=== PATIENT | female | born 1995 | race Caucasian/White ===

== ENCOUNTER 2020-03-07 10:33 | Inpatient (IN) | payer OTHER ==
[2020-03-07] MEDS ORDERED: ONDANSETRON 4 MG TAB.RAPDIS PO ONE (14:13)
[2020-03-07] MEDS ORDERED: NORMAL SALINE 1000 ML 1,000 ML IV ONE ×2 (14:15→18:08)
--- NOTE | 2020-03-07 14:28 | ER Document Report ---
ED Medical Screen (RME) - General Chief Complaint: Flank Pain Stated Complaint: FLANK PAIN/FEVER Time Seen by Provider: 03/07/20 14:12 Primary Care Provider: ALBERTO BOCANEGRA NP [Primary Care Provider] - Follow up as needed Notes: 24-year-old female with 4 days of dysuria, fever and flank pain, left greater than right with associated nausea and vomiting. Is taking motrin 800 mg q 6-8 hours for her fever and pain. Her fever was up to 104 this am. Is unable to keep food down. She recently ate [employer] and feels nauseated. States she has a history of kidney infections, most recent one was 3 months ago. Her urine has a sulfur smell and she notices gross hematuria. She was hospitalized a year and half ago due to an infection. Currently taking macrobid prescribed from her primary care in [place]. Recently moved here from [place]. Also reports vaginal discharge and irritation. General: Alert, oriented Heart: RRR Back: (+) CVA tenderness L > R, no tenderness along spinous processes I have greeted and performed a rapid initial assessment of this patient. A comprehensive ED assessment and evaluation of the patient, analysis of test results and completion of medical decision making process will be conducted by an additional ED providers. Physical Exam - Vital signs Vitals: Temp Pulse Resp BP Pulse Ox 99.7 F 86 16 126/74 H 100 03/07/20 12:37 03/07/20 12:37 03/07/20 12:37 03/07/20 12:37 03/07/20 12:37 Course - Vital Signs Vital signs: Temp Pulse Resp BP Pulse Ox 99.7 F 86 16 126/74 H 100 03/07/20 12:37 03/07/20 12:37 03/07/20 12:37 03/07/20 12:37 03/07/20 12:37 Doctor's Discharge - Discharge Referrals: ALBERTO BOCANEGRA NP [Primary Care Provider] - Follow up as needed
[2020-03-07 15:09] LABS: ABSOLUTE LYMPHOCYTES (AUTO) 1.5 10^3/uL (0.5-4.7); ABSOLUTE MONOCYTES (AUTO) 1.1 10^3/uL (0.1-1.4); ABSOLUTE NEUT (AUTO) 13.6 10^3/uL (1.7-8.2); BASOPHILS % (AUTO) 0.3 % (0-2); EOSINOPHILS % (AUTO) 0.1 % (0-6); HEMOGLOBIN 13.7 g/dL (12.0-15.5); LYMPHOCYTES % (AUTO) 9.5 % (13-45); MEAN CORPUSCULAR HEMOGLOBIN 27.9 pg (27.0-33.4); MEAN CORPUSCULAR HGB CONC 33.5 g/dL (32.0-36.0); MEAN CORPUSCULAR VOLUME 83 fl (80-97); MONOCYTES % (AUTO) 6.8 % (3-13); PLATELET COUNT 290 10^3/uL (150-450); RED BLOOD COUNT 4.92 10^6/uL (3.72-5.28); RED CELL DISTRIBUTION WIDTH 14.6 % (11.5-14.0); SEGMENTED NEUTROPHILS % (AUTO) 83.3 % (42-78); TOTAL CELLS COUNTED % (AUTO) 100 %; WHITE BLOOD COUNT 16.4 10^3/uL (4.0-10.5)
[2020-03-07 15:25] LABS: ALBUMIN 4.7 g/dL (3.5-5.0); ALKALINE PHOSPHATASE 103 U/L (38-126); ANION GAP 8 (5-19); ASPARTATE AMINO TRANSFERASE 23 U/L (14-36); BILIRUBIN,TOTAL 1.4 mg/dL (0.2-1.3); BLOOD UREA NITROGEN 11 mg/dL (7-20); CALCIUM 9.6 mg/dL (8.4-10.2); CARBON DIOXIDE 27 mmol/L (22-30); CHLORIDE 101 mmol/L (98-107); GLUCOSE 107 mg/dL (75-110); POTASSIUM 3.8 mmol/L (3.6-5.0); TOTAL PROTEIN 7.9 g/dL (6.3-8.2)
[2020-03-07 15:51] LABS: APPEARANCE,URINE CLOUDY; BILIRUBIN,URINE NEGATIVE (NEGATIVE); COLOR,URINE AMBER; GLUCOSE, URINE NEGATIVE (NEGATIVE); KETONES,URINE NEGATIVE (NEGATIVE); LEUKOCYTE ESTERASE,URINE LARGE (NEGATIVE); NITRITE,URINE POSITIVE (NEGATIVE); PROTEIN,URINE 100 mg/dL (NEGATIVE); URINE SPECIFIC GRAVITY 1.013; UROBILINOGEN,URINE NEGATIVE mg/dL (<2.0)
--- NOTE | 2020-03-07 16:35 | RADIOLOGY REPORT (SQ) ---
EXAM DESCRIPTION: CT ABD/PELVIS NO ORAL OR IV IMAGES COMPLETED DATE/TIME: 03/07/2020 4:24 pm REASON FOR STUDY: flank pain COMPARISON: None. TECHNIQUE: CT scan of the abdomen and pelvis performed without intravenous or oral contrast. Images reviewed with lung, soft tissue, and bone windows. Reconstructed coronal and sagittal MPR images revi ewed. All images stored on PACS. All CT scanners at this facility use dose modulation, iterative reconstruction, and/or weight based d osing when appropriate to reduce radiation dose to as low as reasonably achievable (ALARA). [facility]: Dose Right [facility]: CareDose [facility]: Dose Right [facility]: Teradose 4D [facility]: Smart MedAware RADIATION DOSE: CT Rad equipment meets quality standard of care and radiation dose reduction techniq ues were employed. CTDIvol: 9.8 mGy. DLP: 526 mGy-cm.mGy. LIMITATIONS: None. FINDINGS: LOWER CHEST: No significant findings. No nodules or infiltrates. NON-CONTRASTED LIVER, SPLEEN, ADRENALS: Evaluation limited by lack of IV contrast. No identified sign ificant masses. PANCREAS: No masses. No peripancreatic inflammatory changes. GALLBLADDER: Cholelithiasis (gallstone measures 1.8 cm). No secondary evidence of acute cholecystiti s. RIGHT KIDNEY AND URETER: No suspicious masses. Assessment limited by lack of IV contrast. No signif icant calcifications. Minimal fullness of the right ureter with some questionable mild diffuse uret eral wall thickening. No obstructing lesion identified. LEFT KIDNEY AND URETER: No suspicious masses. Assessment limited by lack of IV contrast. No signifi cant calcifications. No hydronephrosis or hydroureter. AORTA AND RETROPERITONEUM: No aneurysm. No retroperitoneal masses or adenopathy. BOWEL AND PERITONEAL CAVITY: No obvious masses or inflammatory changes. No free fluid. APPENDIX: Surgically absent. PELVIS, BLADDER, AND ABDOMINAL WALL:No abnormal masses. No free fluid. Bladder normal. BONES: No acute bony abnormality. No suspicious osseous lesion. OTHER: No other significant finding. IMPRESSION: 1. No nephrolithiasis. Mild fullness of the right ureter with questionable ureteral wa ll thickening may be related to recently passed stone or possibly urinary tract infection. Recommend correlation with urinalysis. 2. Cholelithiasis. COMMENT: Quality ID # [id number]: Final reports with documentation of one or more dose reduction techniques (e.g., Automated exposure control, adjustment of the mA and/or kV according to patient size, use of iterative reconstruction technique) TECHNICAL DOCUMENTATION: JOB ID: [id number] 2010 [employer]- All Rights Reserved Reading location - IP/workstation name: [email or web address]
[2020-03-07] MEDS ORDERED: KETOROLAC TROMETHAMINE INJ/PF 30 MG/1 ML SDV IV ONE (18:08)
[2020-03-07] MEDS ORDERED: ONDANSETRON HCL INJ/PF 4 MG/2 ML SDV IV ONE (18:13)
[2020-03-07] MEDS ORDERED: HYDROMORPHONE HCL INJ/PF 2 MG/ML AMPULE IV ONE (18:14)
--- NOTE | 2020-03-07 18:15 | ER Document Report ---
ED GI/ - General Chief Complaint: Flank Pain Stated Complaint: FLANK PAIN/FEVER Time Seen by Provider: 03/07/20 14:12 Mode of Arrival: Ambulatory Information source: Patient Notes: 24-year-old woman presenting to the emergency department with a 4-day history of right sided flank pain and fever with nausea and vomiting. She also complains of dysuria and urgency, states that she has had a UTI in the past. She is presently not taking any medications and rates her pain 05/07. - Related Data Allergies/Adverse Reactions: cephalexin [From Keflex] Adverse Reaction (Verified 03/07/20 16:11) Home Medications: Synthroid, Adderral Past Medical History - Social History Smoking Status: Unknown if Ever Smoked Family History: Reviewed & Not Pertinent Review of Systems - Review of Systems Notes: Constitutional: + Fever. HENT: Negative for sore throat. Eyes: Negative for visual changes. Cardiovascular: Negative for chest pain. Respiratory: Negative for shortness of breath. Gastrointestinal: + Nausea and vomiting Genitourinary: + Dysuria, + frequency, + urgency Musculoskeletal: + Right flank pain Skin: Negative for rash. Neurological: Negative for headaches, weakness or numbness. 10 point ROS negative except as marked above and in HPI. Physical Exam - Vital signs Vitals: Temp Pulse Resp BP Pulse Ox 99.7 F 86 16 126/74 H 100 03/07/20 12:37 03/07/20 12:37 03/07/20 12:37 03/07/20 12:37 03/07/20 12:37 - Notes Notes: PHYSICAL EXAMINATION: Physical Exam: General: Ill appearing 24-year-old woman in moderate distress secondary to right flank pain. HEENT: NC/AT, pupils equal round and reactive to light, MM moist,nares clear, oropharynx clear, airway patent Neck: supple, no adenopathy, no masses. Good range of motion Lungs: clear, no wheezing, no rales no rhonchi CVS: Regular rate and rhythm no murmur gallop or rub Abdomen: Soft, active, nontender, no masses, no hepatosplenomegaly Ext: No edema, clubbing or cyanosis. Back: Right CVA tenderness Neuro: Alert and responsive, moving all 4 extremities on command, cranial nerves intact, no focal findings Skin: Intact no open lesions, no rash PSYCH: Normal mood, normal affect. Course - Re-evaluation Re-evalutation: 03/07/20 20:06 This 24-year-old woman presents to the emergency department right flank pain and fever with associated nausea vomiting. CT scan of the abdomen and pelvis is negative for kidney stone. She does have findings that suggest possible pyelonephritis. There is no abscess around the kidney. Patient has a elevated white count and a urine which is obviously infected. She has a note of cephalexin allergy, notes that she has GI upset with diarrhea when she takes cephalexin. I have given the patient a dose of Rocephin in the emergency department and a liter of fluids. I have contacted the hospitalist regarding admission. - Vital Signs Vital signs: Temp Pulse Resp BP Pulse Ox 98.8 F 97 18 107/56 L 94 03/08/20 23:01 03/08/20 23:01 03/08/20 23:01 03/08/20 23:01 03/08/20 23:01 - Laboratory Result Diagrams: 03/08/20 07:15 03/08/20 07:15 Laboratory results interpreted by me: 03/07/20 03/07/20 03/07/20 14:51 14:51 15:38 WBC 16.4 H RDW 14.6 H Lymph % (Auto) 9.5 L Absolute Neuts (auto) 13.6 H Seg Neutrophils % 83.3 H Sodium 136.1 L Total Bilirubin 1.4 H Urine Protein 100 H Urine Blood LARGE H Urine Nitrite POSITIVE H Ur Leukocyte Esterase LARGE H Discharge - Discharge Clinical Impression: Acute pyelonephritis, Right flank pain Nausea and vomiting Qualifiers: Vomiting type: unspecified Vomiting Intractability: non-intractable Qualified Code(s): R11.2 - Nausea with vomiting, unspecified Condition: Good Disposition: ADMITTED INPATIENT Admitting Provider: Will (Hospitalist) Unit Admitted: Medical Floor
[2020-03-07] MEDS ORDERED: CEFTRIAXONE INJ 1000 MG VIAL IV ONE (18:32)
[2020-03-07] MEDS ORDERED: MAGNESIUM HYDROXIDE SUSP 30 ML UDCUP PO PRN (19:15)
[2020-03-07] MEDS ORDERED: MAG HYDROX/AL HYDROX/SIMETH SUSP 30 ML UDCUP PO PRN (19:15)
[2020-03-07 19:19] LABS: BACTERIA (WET MOUNT) 4+ BACTERIA SEEN; EPITHELIALS (WET MOUNT) 3+ EPITHELIALS SEEN; T.VAGINALIS (WET MOUNT) NO TRICHOMONAS SEEN; WBCS (WET MOUNT) 2+ WBCS SEEN; YEAST (WET MOUNT) NO YEAST SEEN
[2020-03-07] MEDS ORDERED: ACETAMINOPHEN 650 MG SUPP.RECT PR PRN (19:19)
[2020-03-07] MEDS ORDERED: LORAZEPAM INJ 2 MG/1 ML VIAL IV PRN (19:19)
[2020-03-07] MEDS ORDERED: NICOTINE 21 MG/24 HR PATCH.TD24 TD PRN (19:19)
[2020-03-07] MEDS ORDERED: GUAIFENESIN SYRP 200 MG/10 ML UDC PO PRN (19:19)
[2020-03-07] MEDS ORDERED: MEROPENEM 1 GM VIAL IV SCH (19:30)
[2020-03-07] MEDS: PROMETHAZINE HCL INJ 25 MG/1 ML VIAL IV PRN (21:58)
[2020-03-07] MEDS ORDERED: FAMOTIDINE INJ/PF 20 MG/2 ML SDV IV SCH (22:00)
[2020-03-07] MEDS: HYDROMORPHONE HCL INJ/PF 2 MG/ML AMPULE IV PRN (22:01)
[2020-03-07] MEDS: MEROPENEM 1 GM in NORMAL SALINE 50 ML IV SCH (22:45)
[2020-03-07] MEDS: HEPARIN SOD (PORCINE) 5,000 UNIT/ML 1 ML VIAL SUBCUT SCH (22:59)
[2020-03-08] MEDS: DEXTROSE 5%-LACTATED RINGERS 1,000 ML IV PRN ×3 (01:27→16:40)
--- NOTE | 2020-03-08 06:22 | PDOC H&P ---
History of Present Illness Admission Date/PCP: 03/07/2020 19:00 ALBERTO BOCANEGRA NP Patient complains of: Bilateral flank pain History of Present Illness: MINNIE PAULINO is a 24 year old female who presented the emergency room with a 4- day history of bilateral flank pain. She admits the gradual onset and progressive worsening of constant aching pressure in her bilateral posterior flanks being more intense on the left than on the right, without radiation. Her flank pain is severe today and has been accompanied by dysuria with gross hematuria, chills and a persistent fever up to 104 F this morning. Her flank pain has been associated with a vaginal discharge and progressively worsening nausea and vomiting and today she is unable to keep down food or liquids. She denies other associated or accompanying signs and symptoms. She admits prior similar episodes with urinary tract infections. She is currently taking Macrodantin for urinary tract infection prophylaxis. She has been taking ibuprofen for control of pain and fever at home until today when she could no longer tolerate oral intake. She has not identified any aggravating or ameliorating factors for her bilateral flank pain. In the emergency room she was found to have pyuria with a positive nitrite as well as an elevated white blood cell count. She was subsequently admitted to the hospital for further evaluation and treatment. Past Medical History Cardiac Medical History: Denies: Atrial Fibrillation, Coronary Artery Disease, DVT, Hypertension, Pulmonary Embolism Pulmonary Medical History: Denies: Asthma, Chronic Obstructive Pulmonary Disease (COPD) EENT Medical History: Denies: Cataracts, Ears - Hearing aids Neurological Medical History: Denies: Multiple Sclerosis, Seizures Endocrine Medical History: Reports: Hypothyroidism Denies: Diabetes Mellitus Type 1, Hyperthyroidism Renal/ Medical History: Reports: Other - Frequent urinary tract infection Denies: Chronic Kidney Disease, Nephrolithiasis Malignancy Medical History: Reports: None GI Medical History: Denies: Cirrhosis, Hepatitis, Peptic Ulcer Disease Musculoskeltal Medical History: Denies: Arthritis, Fibromyalgia Skin Medical History: Denies: Eczema, Psoriasis Psychiatric Medical History: Denies: Alcohol Dependency, Substance Abuse, Tobacco Dependency Traumatic Medical History: Reports: None Hematology: Denies: Anemia, Bleeding Tendencies Infectious Medical History: Reports: None Past Surgical History Past Surgical History: Reports: Appendectomy Social History Information Source: Patient Lives with: Spouse/Significant other Smoking Status: Never Smoker Electronic Cigarette use?: No Frequency of Alcohol Use: Rare Hx Recreational Drug Use: No Drugs: None Hx Prescription Drug Abuse: No - Advance Directive Resuscitation Status: Full Code Surrogate healthcare decision maker:: Drew Paulino Family History Family History: Other - Autoimmune diseases. denies: CAD, DM, Hypertension, Malignancy Parental Family History Reviewed: Yes Children Family History Reviewed: No Sibling(s) Family History Reviewed.: Yes Medication/Allergy Allergies/Adverse Reactions: cephalexin [From Keflex] Adverse Reaction (Verified 03/07/20 16:11) Review of Systems Constitutional: PRESENT: as per HPI, chills, fever(s). ABSENT: headache(s) Eyes: ABSENT: visual disturbances, other - Eye pain Ears: ABSENT: hearing changes, other - Ear pain Nose, Mouth, and Throat: ABSENT: headache(s), sore throat Cardiovascular: ABSENT: chest pain, palpitations Respiratory: ABSENT: cough, dyspnea Gastrointestinal: PRESENT: nausea, vomiting. ABSENT: abdominal pain, constipation, diarrhea Genitourinary: PRESENT: as per HPI, dysuria, hematuria, other - Bilateral flank pain Musculoskeletal: ABSENT: joint swelling, muscle weakness Integumentary: ABSENT: pruritus, rash Neurological: ABSENT: confusion, convulsions, focal weakness, memory loss, syncope Psychiatric: ABSENT: anxiety, depression Endocrine: ABSENT: cold intolerance, heat intolerance Hematologic/Lymphatic: ABSENT: easy bleeding, easy bruising Allergic/Immunologic: ABSENT: seasonal rhinorrhea Physical Exam Vital Signs: Temp Pulse Resp BP Pulse Ox 99.7 F 86 16 126/74 H 100 03/07/20 12:37 03/07/20 12:37 03/07/20 12:37 03/07/20 12:37 03/07/20 12:37 Intake & Output 03/05/20 03/06/20 03/07/20 23:59 23:59 23:59 Intake Total 1999 Balance 1999 Weight 83.915 kg General appearance: PRESENT: cooperative, mild distress - Secondary to flank pain Head exam: PRESENT: atraumatic, normocephalic Eye exam: PRESENT: conjunctiva pink. ABSENT: conjunctival injection, scleral icterus Ear exam: PRESENT: normal external ear exam. ABSENT: bleeding, drainage Mouth exam: PRESENT: dry mucosa, neck supple Neck exam: ABSENT: thyromegaly, tracheal deviation Respiratory exam: PRESENT: clear to auscultation navarro, symmetrical, unlabored Cardiovascular exam: PRESENT: RRR. ABSENT: clicks, gallop, rubs Pulses: PRESENT: normal radial pulses, normal dorsalis pedis pul Vascular exam: PRESENT: normal capillary refill. ABSENT: pallor GI/Abdominal exam: PRESENT: normal bowel sounds, soft, tenderness - Bilateral CVA tenderness, left greater than right Rectal exam: PRESENT: deferred Extremities exam: ABSENT: joint swelling, pedal edema Musculoskeletal exam: ABSENT: deformity, dislocation Neurological exam: PRESENT: alert, oriented to person, oriented to place, oriented to time, oriented to situation, CN II-XII grossly intact. ABSENT: motor sensory deficit Psychiatric exam: PRESENT: appropriate affect, normal mood Skin exam: PRESENT: dry, intact, warm. ABSENT: jaundice, rash, urticaria Results Laboratory Results: 03/07/20 14:51 03/07/20 14:51 03/07/20 03/07/20 03/07/20 14:51 14:51 15:38 WBC 16.4 H RBC 4.92 Hgb 13.7 Hct 41.0 MCV 83 MCH 27.9 MCHC 33.5 RDW 14.6 H Plt Count 290 Seg Neutrophils % 83.3 H Sodium 136.1 L Potassium 3.8 Chloride 101 Carbon Dioxide 27 Anion Gap 8 BUN 11 Creatinine 0.70 Est GFR ( Amer) > 60 Glucose 107 Calcium 9.6 Total Bilirubin 1.4 H AST 23 Alkaline Phosphatase 103 Total Protein 7.9 Albumin 4.7 Urine Color SAM Urine Appearance CLOUDY Urine pH 5.0 Ur Specific [place] 1.013 Urine Protein 100 H Urine Glucose (UA) NEGATIVE Urine Ketones NEGATIVE Urine Blood LARGE H Urine Nitrite POSITIVE H Ur Leukocyte Esterase LARGE H Urine WBC (Auto) >182 Urine RBC (Auto) 19 Impressions: Abdomen/Pelvis CT 03/07/20 14:13 IMPRESSION: 1. No nephrolithiasis. Mild fullness of the right ureter with questionable ureteral wall thickening may be related to recently passed stone or possibly urinary tract infection. Recommend correlation with urinalysis. 2. Cholelithiasis. Assessment and Plan - Diagnosis (1) Acute pyelonephritis Is this a current diagnosis for this admission?: Yes (2) SIRS (systemic inflammatory response syndrome) Is this a current diagnosis for this admission?: Yes (3) Bilateral flank pain Is this a current diagnosis for this admission?: Yes (4) Hematuria Qualifiers: Hematuria type: gross Qualified Code(s): R31.0 - Gross hematuria Is this a current diagnosis for this admission?: Yes (5) Nausea and vomiting Qualifiers: Vomiting type: unspecified Vomiting Intractability: non-intractable Qualified Code(s): R11.2 - Nausea with vomiting, unspecified Is this a current diagnosis for this admission?: Yes (6) Vaginal discharge Is this a current diagnosis for this admission?: Yes - Plan Summary Summary: Patient will be admitted to the medical floor where she received routine supportive and symptomatic cares. She will be treated with IV meropenem 1 g every 8 hours initially pending blood and urine culture results. She will receive Dilaudid 0.5 to 2.0 mg IV every 3 hours as needed for pain control. She will receive Ativan 1 mg IV every 4 hours as needed for anxiety or restlessness. CBCs, metabolic profiles and additional laboratory and/or radiographic evaluations will be obtained as needed. She will be on a regular diet. - Time Time Spent with patient: 15-24 minutes Medications reviewed and adjusted accordingly: Yes Anticipated Discharge Disposition: Home, Self Care Anticipated Discharge Timeframe: within 72 hours - Inpatient Certification Based on my medical assessment, after consideration of the patient's comorbidities, presenting symptoms, or acuity I expect that the services needed warrant INPATIENT care.: Yes I certify that my determination is in accordance with my understanding of Medicare's requirements for reasonable and necessary INPATIENT services [42 CFR 412.3e].: Yes Medical Necessity: Failure to Improve With Outpatient Therapy, Need Close Monitoring Due to Risk of Patient Decompensation, Need For IV Fluids, Need for Pain Control, Need for IV Antibiotics
[2020-03-08] MEDS: HYDROMORPHONE HCL INJ/PF 2 MG/ML AMPULE IV PRN (07:11)
[2020-03-08] MEDS: HEPARIN SOD (PORCINE) 5,000 UNIT/ML 1 ML VIAL SUBCUT SCH ×3 (07:14→21:35)
[2020-03-08] MEDS: MEROPENEM 1 GM in NORMAL SALINE 50 ML IV SCH ×3 (07:15→21:33)
[2020-03-08 08:10] LABS: ABSOLUTE EOSINOPHILS # (AUTO) 0.1 10^3/uL (0.0-0.6); ABSOLUTE LYMPHOCYTES (AUTO) 1.7 10^3/uL (0.5-4.7); ABSOLUTE MONOCYTES (AUTO) 1.1 10^3/uL (0.1-1.4); ABSOLUTE NEUT (AUTO) 7.4 10^3/uL (1.7-8.2); BASOPHILS % (AUTO) 0.2 % (0-2); EOSINOPHILS % (AUTO) 1.2 % (0-6); HEMATOCRIT 37.5 % (36.0-47.0); HEMOGLOBIN 12.5 g/dL (12.0-15.5); LYMPHOCYTES % (AUTO) 16.2 % (13-45); MEAN CORPUSCULAR HEMOGLOBIN 28.3 pg (27.0-33.4); MEAN CORPUSCULAR HGB CONC 33.4 g/dL (32.0-36.0); MEAN CORPUSCULAR VOLUME 85 fl (80-97); MONOCYTES % (AUTO) 10.8 % (3-13); PLATELET COUNT 236 10^3/uL (150-450); RED BLOOD COUNT 4.44 10^6/uL (3.72-5.28); RED CELL DISTRIBUTION WIDTH 14.3 % (11.5-14.0); SEGMENTED NEUTROPHILS % (AUTO) 71.6 % (42-78); TOTAL CELLS COUNTED % (AUTO) 100 %; WHITE BLOOD COUNT 10.4 10^3/uL (4.0-10.5)
[2020-03-08 08:29] LABS: ALBUMIN 3.4 g/dL (3.5-5.0); ALKALINE PHOSPHATASE 80 U/L (38-126); ANION GAP 5 (5-19); ASPARTATE AMINO TRANSFERASE 19 U/L (14-36); BLOOD UREA NITROGEN 10 mg/dL (7-20); CALCIUM 8.2 mg/dL (8.4-10.2); CARBON DIOXIDE 25 mmol/L (22-30); CHLORIDE 108 mmol/L (98-107); GLUCOSE 90 mg/dL (75-110); POTASSIUM 3.7 mmol/L (3.6-5.0); TOTAL PROTEIN 6.2 g/dL (6.3-8.2)
--- NOTE | 2020-03-08 09:13 | PDOC PROGRESS REPORT ---
Subjective Progress Note for:: 03/07/20 Subjective:: 24 year old female who presented the emergency room with a 4-day history of bilateral flank pain. She admits the gradual onset and progressive worsening of constant aching pressure in her bilateral posterior flanks being more intense on the left than on the right, without radiation. Her flank pain is severe today and has been accompanied by dysuria with gross hematuria, chills and a persistent fever up to 104 F this morning. Her flank pain has been associated with a vaginal discharge and progressively worsening nausea and vomiting and today she is unable to keep down food or liquids. She denies other associated or accompanying signs and symptoms. She admits prior similar episodes with urinary tract infections. She is currently taking Macrodantin for urinary tract infection prophylaxis. She has been taking ibuprofen for control of pain and fever at home until today when she could no longer tolerate oral intake. She has not identified any aggravating or ameliorating factors for her bilateral flank pain. In the emergency room she was found to have pyuria with a positive nitrite as well as an elevated white blood cell count. She was subsequently admitted to the hospital for further evaluation and treatment. [id number]-aese-old female admitted with bilateral flank pain and urine analysis is abnormal. She also has a fever of 104 and WBC count is 16,000 on admission. Temp is 97.4 this morning and her WBC count came down to 10,400. P atcalixto is on meropenem at this time. CT scan did not suggestive of kidney stones. pt is still complaining of flank pain. Urine cultures blood cultures are pending at this time. Reason For Visit: ACUTE PYELONEPHRITIS Physical Exam Vital Signs: Temp Pulse Resp BP Pulse Ox 98.2 F 89 16 113/61 98 03/08/20 08:01 03/08/20 08:01 03/08/20 08:01 03/08/20 08:01 03/08/20 08:01 Intake & Output 03/07/20 03/08/20 03/09/20 06:59 06:59 06:59 Intake Total 0 1000 Output Total 200 Balance 1850 1000 Weight 87.1 kg General appearance: PRESENT: no acute distress, well-developed Head exam: PRESENT: atraumatic Eye exam: PRESENT: PERRLA Ear exam: PRESENT: normal external ear exam Teeth exam: PRESENT: poor dentation Neck exam: ABSENT: carotid bruit, JVD, lymphadenopathy, thyromegaly Respiratory exam: PRESENT: decreased breath sounds Cardiovascular exam: PRESENT: RRR. ABSENT: diastolic murmur, rubs, systolic murmur GI/Abdominal exam: PRESENT: normal bowel sounds, soft. ABSENT: distended, guarding, mass, organolmegaly, rebound, tenderness Rectal exam: PRESENT: deferred Extremities exam: PRESENT: full ROM. ABSENT: calf tenderness, clubbing, pedal edema Neurological exam: PRESENT: alert, awake, oriented to person, oriented to place, oriented to time, oriented to situation, CN II-XII grossly intact. ABSENT: motor sensory deficit Psychiatric exam: PRESENT: appropriate affect, normal mood. ABSENT: homicidal ideation, suicidal ideation Results Laboratory Results: 03/08/20 07:15 03/08/20 07:15 03/07/20 03/07/20 03/07/20 14:51 14:51 15:38 WBC 16.4 H RBC 4.92 Hgb 13.7 Hct 41.0 MCV 83 MCH 27.9 MCHC 33.5 RDW 14.6 H Plt Count 290 Seg Neutrophils % 83.3 H Sodium 136.1 L Potassium 3.8 Chloride 101 Carbon Dioxide 27 Anion Gap 8 BUN 11 Creatinine 0.70 Est GFR ( Amer) > 60 Est GFR (Non-Af Amer) Glucose 107 Calcium 9.6 Magnesium Total Bilirubin 1.4 H AST 23 Alkaline Phosphatase 103 Total Protein 7.9 Albumin 4.7 Urine Color SAM Urine Appearance CLOUDY Urine pH 5.0 Ur Specific [place] 1.013 Urine Protein 100 H Urine Glucose (UA) NEGATIVE Urine Ketones NEGATIVE Urine Blood LARGE H Urine Nitrite POSITIVE H Ur Leukocyte Esterase LARGE H Urine WBC (Auto) >182 Urine RBC (Auto) 19 03/08/20 03/08/20 03/08/20 07:15 07:15 07:15 WBC 10.4 RBC 4.44 Hgb 12.5 Hct 37.5 MCV 85 MCH 28.3 MCHC 33.4 RDW 14.3 H Plt Count 236 Seg Neutrophils % 71.6 Sodium Cancelled 138.2 Potassium Cancelled 3.7 Chloride Cancelled 108 H Carbon Dioxide Cancelled 25 Anion Gap Cancelled 5 BUN Cancelled 10 Creatinine Cancelled 0.58 Est GFR ( Amer) Cancelled > 60 Est GFR (Non-Af Amer) Cancelled Glucose Cancelled 90 Calcium Cancelled 8.2 L Magnesium 2.0 Total Bilirubin 1.0 AST 19 Alkaline Phosphatase 80 Total Protein 6.2 L Albumin 3.4 L Urine Color Urine Appearance Urine pH Ur Specific [place] Urine Protein Urine Glucose (UA) Urine Ketones Urine Blood Urine Nitrite Ur Leukocyte Esterase Urine WBC (Auto) Urine RBC (Auto) Impressions: Abdomen/Pelvis CT 03/07/20 14:13 IMPRESSION: 1. No nephrolithiasis. Mild fullness of the right ureter with questionable ureteral wall thickening may be related to recently passed stone or possibly urinary tract infection. Recommend correlation with urinalysis. 2. Cholelithiasis. Assessment and Plan - Diagnosis (1) Acute pyelonephritis Is this a current diagnosis for this admission?: Yes Plan: 03/08/2020-patient came in with high WBC count, fever of 104, abnormal urine analysis. CT scan negative for kidney stones negative for acute pathology. Patient is receiving IV meropenem at this time blood cultures urine cultures are pending. Discontinue IV Dilaudid and to start on p.o. Percocets from today. (2) Bilateral flank pain Is this a current diagnosis for this admission?: Yes Plan: 03/08/2020-patient is still complaining of bilateral flank pain most likely secondary to pyelonephritis. (3) Sepsis Is this a current diagnosis for this admission?: Yes Plan: 03/08/2020-patient came in with complaints of bilateral flank pain, elevated WBC count, fever with a temperature of 104. Blood cultures urine cultures are pending urine analysis looks abnormal. May meet the criteria for sepsis. (4) Nausea and vomiting Qualifiers: Vomiting type: unspecified Vomiting Intractability: non-intractable Qualified Code(s): R11.2 - Nausea with vomiting, unspecified Is this a current diagnosis for this admission?: Yes Plan: 03/08/2020-patient came in with complaints of nausea and vomitings resolving. - Plan Summary Summary: Patient will be admitted to the medical floor where she received routine supportive and symptomatic cares. She will be treated with IV meropenem 1 g every 8 hours initially pending blood and urine culture results. She will receive Dilaudid 0.5 to 2.0 mg IV every 3 hours as needed for pain control. She will receive Ativan 1 mg IV every 4 hours as needed for anxiety or restlessness. CBCs, metabolic profiles and additional laboratory and/or radiographic evaluations will be obtained as needed. She will be on a regular diet. - Time Anticipated Discharge Disposition: Home, Self Care Anticipated Discharge Timeframe: within 72 hours
[2020-03-08] MEDS: DOCUSATE SODIUM 100 MG CAPSULE PO SCH ×2 (10:22→17:45)
[2020-03-08] MEDS: OXYCODONE-ACETAMINOPHEN 5-325 MG TABLET PO PRN ×2 (11:21→21:33)
[2020-03-08] MEDS: PROMETHAZINE HCL INJ 25 MG/1 ML VIAL IV PRN (12:12)
[2020-03-08] MEDS: PANTOPRAZOLE SODIUM 40 MG TABLET.DR PO SCH (16:40)
[2020-03-08] MEDS: ACETAMINOPHEN 325 MG TABLET PO PRN ×2 (16:40→21:32)
[2020-03-09] MEDS: DEXTROSE 5%-LACTATED RINGERS 1,000 ML IV PRN ×3 (01:36→18:01)
[2020-03-09] MEDS: PANTOPRAZOLE SODIUM 40 MG TABLET.DR PO SCH ×2 (05:20→18:02)
[2020-03-09] MEDS: MEROPENEM 1 GM in NORMAL SALINE 50 ML IV SCH (05:20)
[2020-03-09] MEDS: HEPARIN SOD (PORCINE) 5,000 UNIT/ML 1 ML VIAL SUBCUT SCH ×3 (05:21→22:18)
[2020-03-09] MEDS: ACETAMINOPHEN 325 MG TABLET PO PRN ×3 (07:44→20:03)
[2020-03-09 08:36] LABS: ABSOLUTE EOSINOPHILS # (AUTO) 0.1 10^3/uL (0.0-0.6); ABSOLUTE MONOCYTES (AUTO) 1.4 10^3/uL (0.1-1.4); ABSOLUTE NEUT (AUTO) 5.9 10^3/uL (1.7-8.2); BASOPHILS % (AUTO) 0.3 % (0-2); HEMATOCRIT 36.7 % (36.0-47.0); HEMOGLOBIN 12.4 g/dL (12.0-15.5); LYMPHOCYTES % (AUTO) 21.3 % (13-45); MEAN CORPUSCULAR HEMOGLOBIN 28.3 pg (27.0-33.4); MEAN CORPUSCULAR HGB CONC 33.8 g/dL (32.0-36.0); MEAN CORPUSCULAR VOLUME 84 fl (80-97); MONOCYTES % (AUTO) 15.1 % (3-13); PLATELET COUNT 242 10^3/uL (150-450); RED BLOOD COUNT 4.39 10^6/uL (3.72-5.28); SEGMENTED NEUTROPHILS % (AUTO) 62.3 % (42-78); TOTAL CELLS COUNTED % (AUTO) 100 %; WHITE BLOOD COUNT 9.5 10^3/uL (4.0-10.5)
--- NOTE | 2020-03-09 08:50 | PDOC PROGRESS REPORT ---
Subjective Progress Note for:: 03/09/20 Subjective:: 24 year old female who presented the emergency room with a 4-day history of bilateral flank pain. She admits the gradual onset and progressive worsening of constant aching pressure in her bilateral posterior flanks being more intense on the left than on the right, without radiation. Her flank pain is severe today and has been accompanied by dysuria with gross hematuria, chills and a persistent fever up to 104 F this morning. Her flank pain has been associated with a vaginal discharge and progressively worsening nausea and vomiting and today she is unable to keep down food or liquids. She denies other associated or accompanying signs and symptoms. She admits prior similar episodes with urinary tract infections. She is currently taking Macrodantin for urinary tract infection prophylaxis. She has been taking ibuprofen for control of pain and fever at home until today when she could no longer tolerate oral intake. She has not identified any aggravating or ameliorating factors for her bilateral flank pain. In the emergency room she was found to have pyuria with a positive nitrite as well as an elevated white blood cell count. She was subsequently admitted to the hospital for further evaluation and treatment. [id number]-old female admitted with bilateral flank pain and urine analysis is abnormal. She also has a fever of 104 and WBC count is 16,000 on admission. Temp is 97.4 this morning and her WBC count came down to 10,400. P faviola is on meropenem at this time. CT scan did not suggestive of kidney stones. pt is still complaining of flank pain. Urine cultures blood cultures are pending at this time. 03/09/2020-patient has spiking fever of 101.5 this morning blood cultures are negative urine culture is positive for E. coli CT scan did not suggestive of any kidney stones. Plan is to repeat the blood cultures today. To discontinue IV meropenem and started on IV levofloxacin at this time. Reason For Visit: ACUTE PYELONEPHRITIS Physical Exam Vital Signs: Temp Pulse Resp BP Pulse Ox 101.5 F H 102 H 17 129/69 H 99 03/09/20 08:00 03/09/20 08:00 03/09/20 08:00 03/09/20 08:00 03/09/20 08:00 Intake & Output 03/08/20 03/09/20 03/10/20 06:59 06:59 06:59 Intake Total 2050 5550 1000 Output Total 200 1250 Balance 1850 4300 1000 Weight 87.1 kg 88.9 kg General appearance: PRESENT: no acute distress, well-developed Head exam: PRESENT: atraumatic Eye exam: PRESENT: PERRLA Mouth exam: PRESENT: moist, tongue midline Teeth exam: PRESENT: poor dentation Neck exam: ABSENT: carotid bruit, JVD, lymphadenopathy, thyromegaly Respiratory exam: PRESENT: decreased breath sounds Cardiovascular exam: PRESENT: RRR. ABSENT: diastolic murmur, rubs, systolic murmur GI/Abdominal exam: PRESENT: normal bowel sounds, soft. ABSENT: distended, guarding, mass, organolmegaly, rebound, tenderness Rectal exam: PRESENT: deferred Extremities exam: PRESENT: full ROM. ABSENT: calf tenderness, clubbing, pedal edema Neurological exam: PRESENT: alert, awake, oriented to person, oriented to place, oriented to time, oriented to situation, CN II-XII grossly intact. ABSENT: motor sensory deficit Psychiatric exam: PRESENT: appropriate affect, normal mood. ABSENT: homicidal ideation, suicidal ideation Results Laboratory Results: 03/09/20 07:54 03/09/20 07:54 WBC 9.5 RBC 4.39 Hgb 12.4 Hct 36.7 MCV 84 MCH 28.3 MCHC 33.8 RDW 14.0 Plt Count 242 Seg Neutrophils % 62.3 03/07/20 15:38 Clean Catch Midstream Urine Culture - Final Escherichia Coli Impressions: Abdomen/Pelvis CT 03/07/20 14:13 IMPRESSION: 1. No nephrolithiasis. Mild fullness of the right ureter with questionable ureteral wall thickening may be related to recently passed stone or possibly urinary tract infection. Recommend correlation with urinalysis. 2. Cholelithiasis. Assessment and Plan - Diagnosis (1) Acute pyelonephritis Is this a current diagnosis for this admission?: Yes Plan: 03/08/2020-patient came in with high WBC count, fever of 104, abnormal urine analysis. CT scan negative for kidney stones negative for acute pathology. Patient is receiving IV meropenem at this time blood cultures urine cultures are pending. Discontinue IV Dilaudid and to start on p.o. Percocets from today. 03/09/20--blood cultures are negative, urine culture is positive for E. coli. Spiked a fever of 101.5 this morning to repeat the blood cultures. Presently on meropenem plan is to switch antibiotics to IV levofloxacin today. WBC count is 9500 normalized and chemistries pending at this time. (2) Bilateral flank pain Is this a current diagnosis for this admission?: Yes Plan: 03/08/2020-patient is still complaining of bilateral flank pain most likely secondary to pyelonephritis. 03/09/2020-patient is complaining of less pain today compared to yesterday. (3) Sepsis Is this a current diagnosis for this admission?: Yes Plan: 03/08/2020-patient came in with complaints of bilateral flank pain, elevated WBC count, fever with a temperature of 104. Blood cultures urine cultures are pending urine analysis looks abnormal. May meet the criteria for sepsis. 03/09/2020-patient has a fever of 101.5 this morning urine culture is positive for E. coli blood cultures are negative and T-max is 101.5. Plan is to discontinue IV meropenem started on IV levofloxacin today. (4) Nausea and vomiting Qualifiers: Vomiting type: unspecified Vomiting Intractability: non-intractable Qualified Code(s): R11.2 - Nausea with vomiting, unspecified Is this a current diagnosis for this admission?: Yes Plan: 03/08/2020-patient came in with complaints of nausea and vomitings resolving. 03/09/2020-no complaints of nausea and vomitings at this time. - Plan Summary Summary: Patient will be admitted to the medical floor where she received routine supportive and symptomatic cares. She will be treated with IV meropenem 1 g every 8 hours initially pending blood and urine culture results. She will receive Dilaudid 0.5 to 2.0 mg IV every 3 hours as needed for pain control. She will receive Ativan 1 mg IV every 4 hours as needed for anxiety or restlessness. CBCs, metabolic profiles and additional laboratory and/or radiographic evaluations will be obtained as needed. She will be on a regular diet. - Time Anticipated Discharge Disposition: Home, Self Care Anticipated Discharge Timeframe: within 48 hours
[2020-03-09 08:59] LABS: ALBUMIN 3.4 g/dL (3.5-5.0); ALKALINE PHOSPHATASE 72 U/L (38-126); ANION GAP 7 (5-19); ASPARTATE AMINO TRANSFERASE 21 U/L (14-36); BILIRUBIN,TOTAL 0.8 mg/dL (0.2-1.3); BLOOD UREA NITROGEN 4 mg/dL (7-20); CALCIUM 8.6 mg/dL (8.4-10.2); CARBON DIOXIDE 27 mmol/L (22-30); CHLORIDE 102 mmol/L (98-107); GLUCOSE 88 mg/dL (75-110); POTASSIUM 3.6 mmol/L (3.6-5.0); TOTAL PROTEIN 6.3 g/dL (6.3-8.2)
[2020-03-09] MEDS ORDERED: LEVOTHYROXINE SODIUM 0.15 MG TABLET PO SCH (10:00)
[2020-03-09] MEDS ORDERED: LEVOFLOXACIN 500 MG/D5W RTU 500 MG/100 ML RTUPB IV SCH (10:00)
[2020-03-09] MEDS: DOCUSATE SODIUM 100 MG CAPSULE PO SCH ×2 (11:04→18:01)
[2020-03-09] MEDS: LEVOTHYROXINE SODIUM 0.15 MG TABLET PO SCH (11:04)
[2020-03-10] MEDS: DEXTROSE 5%-LACTATED RINGERS 1,000 ML IV PRN (02:49)
[2020-03-10] MEDS: LEVOTHYROXINE SODIUM 0.05 MG TABLET ONE ×3 (05:22→05:25)
[2020-03-10] MEDS: PANTOPRAZOLE SODIUM 40 MG TABLET.DR PO SCH (05:23)
[2020-03-10] MEDS: LEVOTHYROXINE SODIUM 0.15 MG TABLET PO SCH (05:26)
[2020-03-10] MEDS: HEPARIN SOD (PORCINE) 5,000 UNIT/ML 1 ML VIAL SUBCUT SCH (05:28)
[2020-03-10 07:39] LABS: ABSOLUTE EOSINOPHILS # (AUTO) 0.2 10^3/uL (0.0-0.6); ABSOLUTE LYMPHOCYTES (AUTO) 2.7 10^3/uL (0.5-4.7); ABSOLUTE MONOCYTES (AUTO) 1.2 10^3/uL (0.1-1.4); ABSOLUTE NEUT (AUTO) 5.3 10^3/uL (1.7-8.2); BASOPHILS % (AUTO) 0.5 % (0-2); EOSINOPHILS % (AUTO) 2.1 % (0-6); HEMATOCRIT 36.3 % (36.0-47.0); HEMOGLOBIN 12.5 g/dL (12.0-15.5); MEAN CORPUSCULAR HEMOGLOBIN 28.4 pg (27.0-33.4); MEAN CORPUSCULAR HGB CONC 34.3 g/dL (32.0-36.0); MEAN CORPUSCULAR VOLUME 83 fl (80-97); MONOCYTES % (AUTO) 12.4 % (3-13); PLATELET COUNT 275 10^3/uL (150-450); RED BLOOD COUNT 4.38 10^6/uL (3.72-5.28); RED CELL DISTRIBUTION WIDTH 13.6 % (11.5-14.0); TOTAL CELLS COUNTED % (AUTO) 100 %; WHITE BLOOD COUNT 9.4 10^3/uL (4.0-10.5)
[2020-03-10 07:59] LABS: ALBUMIN 3.5 g/dL (3.5-5.0); ALKALINE PHOSPHATASE 70 U/L (38-126); ANION GAP 6 (5-19); ASPARTATE AMINO TRANSFERASE 19 U/L (14-36); BILIRUBIN,TOTAL 0.4 mg/dL (0.2-1.3); BLOOD UREA NITROGEN 4 mg/dL (7-20); CALCIUM 8.7 mg/dL (8.4-10.2); CARBON DIOXIDE 27 mmol/L (22-30); CHLORIDE 104 mmol/L (98-107); GLUCOSE 98 mg/dL (75-110); POTASSIUM 3.9 mmol/L (3.6-5.0); TOTAL PROTEIN 6.4 g/dL (6.3-8.2)
[2020-03-10 09:02] VITALS: BP 126/67
--- NOTE | 2020-03-10 11:51 | PDOC DISCHARGE SUMMARY ---
Impression - Admit/DC Date/PCP Admission Date/Primary Care Provider: 03/07/20 20:19 ALBERTO BOCANEGRA NP Discharge Date: 03/10/20 - Discharge Diagnosis (1) Acute pyelonephritis Is this a current diagnosis for this admission?: Yes (2) Bilateral flank pain Is this a current diagnosis for this admission?: Yes (3) Sepsis Is this a current diagnosis for this admission?: Yes (4) Nausea and vomiting Is this a current diagnosis for this admission?: Yes - Assessment Summary: (1) Acute pyelonephritis Is this a current diagnosis for this admission?: Yes Plan: 03/08/2020-patient came in with high WBC count, fever of 104, abnormal urine analysis. CT scan negative for kidney stones negative for acute pathology. Patient is receiving IV meropenem at this time blood cultures urine cultures are pending. Discontinue IV Dilaudid and to start on p.o. Percocets from today. 03/09/20--blood cultures are negative, urine culture is positive for E. coli. Spiked a fever of 101.5 this morning to repeat the blood cultures. Presently on meropenem plan is to switch antibiotics to IV levofloxacin today. WBC count is 9500 normalized and chemistries pending at this time. 03/10/2020-blood cultures are negative and urine culture is positive for E. coli sensitivity to levofloxacin. Patient is afebrile. CT scan is negative for kidney stones. Patient was given a prescription for levofloxacin and she was advised to follow-up with urology as an outpatient. (2) Bilateral flank pain Is this a current diagnosis for this admission?: Yes Plan: 03/08/2020-patient is still complaining of bilateral flank pain most likely secondary to pyelonephritis. 03/09/2020-patient is complaining of less pain today compared to yesterday. 03/10/2020-patient denies any back pains this morning. (3) Sepsis Is this a current diagnosis for this admission?: Yes Plan: 03/08/2020-patient came in with complaints of bilateral flank pain, elevated WBC count, fever with a temperature of 104. Blood cultures urine cultures are pending urine analysis looks abnormal. May meet the criteria for sepsis. 03/09/2020-patient has a fever of 101.5 this morning urine culture is positive for E. coli blood cultures are negative and T-max is 101.5. Plan is to discontinue IV meropenem started on IV levofloxacin today. 09/10/2019-patient is afebrile, WBC count is normal urine culture is positive for E. coli blood cultures are negative. Going home on p.o. levofloxacin today. (4) Nausea and vomiting Qualifiers: Vomiting type: unspecified Vomiting Intractability: non-intractable Qualified Code(s): R11.2 - Nausea with vomiting, unspecified Is this a current diagnosis for this admission?: Yes Plan: 03/08/2020-patient came in with complaints of nausea and vomitings resolving. 03/09/2020-no complaints of nausea and vomitings at this time. - Additional Information Resuscitation Status: Full Code Discharge Diet: Regular Discharge Activity: Activity As Tolerated Referrals: VENTURA FERRARO MD [NO LOCAL MD] - (Patient to make her own appointment) ALBERTO BOCANEGRA NP [Primary Care Provider] - Follow up as needed Prescriptions: Levofloxacin [Levaquin 500 mg Tablet] 500 mg PO DAILY 7 Days #7 tablet Home Medications: Levothyroxine Sodium [Levo-T] 150 mcg PO Q6AM 03/08/20 Levofloxacin [Levaquin 500 mg Tablet] 500 mg PO DAILY 7 Days #7 tablet 03/10/20 History of Present Illiness History of Present Illness: MINNIE VALENCIA is a 24 year old female 24 year old female who presented the emergency room with a 4-day history of bilateral flank pain. She admits the gradual onset and progressive worsening of constant aching pressure in her bilateral posterior flanks being more intense on the left than on the right, without radiation. Her flank pain is severe today and has been accompanied by dysuria with gross hematuria, chills and a persistent fever up to 104 F this morning. Her flank pain has been associated with a vaginal discharge and progressively worsening nausea and vomiting and today she is unable to keep down food or liquids. She denies other associated or accompanying signs and symptoms. She admits prior similar episodes with urinary tract infections. She is currently taking Macrodantin for urinary tract infection prophylaxis. She has been taking ibuprofen for control of pain and fever at home until today when she could no longer tolerate oral intake. She has not identified any aggravating or ameliorating factors for her bilateral flank pain. In the emergency room she was found to have pyuria with a positive nitrite as well as an elevated white blood cell count. She was subsequently admitted to the hospital for further evaluation and treatment. Hospital Course Hospital Course: 24 year old female who presented the emergency room with a 4-day history of bilateral flank pain. She admits the gradual onset and progressive worsening of constant aching pressure in her bilateral posterior flanks being more intense on the left than on the right, without radiation. Her flank pain is severe today and has been accompanied by dysuria with gross hematuria, chills and a persistent fever up to 104 F this morning. Her flank pain has been associated with a vaginal discharge and progressively worsening nausea and vomiting and today she is unable to keep down food or liquids. She denies other associated or accompanying signs and symptoms. She admits prior similar episodes with urinary tract infections. She is currently taking Macrodantin for urinary tract infection prophylaxis. She has been taking ibuprofen for control of pain and fever at home until today when she could no longer tolerate oral intake. She has not identified any aggravating or ameliorating factors for her bilateral flank pain. In the emergency room she was found to have pyuria with a positive nitrite as well as an elevated white blood cell count. She was subsequently admitted to the hospital for further evaluation and treatment. 03/[id number]-old female admitted with bilateral flank pain and urine analysis is abnormal. She also has a fever of 104 and WBC count is 16,000 on admission. Temp is 97.4 this morning and her WBC count came down to 10,400. Patient is on meropenem at this time. CT scan did not suggestive of kidney stones. pt is still complaining of flank pain. Urine cultures blood cultures are pending at this time. 03/09/2020-patient has spiking fever of 101.5 this morning blood cultures are negative urine culture is positive for E. coli CT scan did not suggestive of any kidney stones. Plan is to repeat the blood cultures today. To discontinue IV meropenem and started on IV levofloxacin at this time. 03/10/2020-patient is doing well. Afebrile. Urine culture came back positive for E. coli and blood cultures are negative. Patient is expressing desire to go home today. Given a prescription for levofloxacin for 7 days. Patient is advised to follow-up with urology as an outpatient. Physical Exam Vital Signs: Temp Pulse Resp BP Pulse Ox 98.0 F 85 17 126/67 H 99 03/10/20 08:58 03/10/20 08:58 03/10/20 08:58 03/10/20 08:58 03/10/20 08:58 Intake & Output 03/09/20 03/10/20 03/11/20 06:59 06:59 06:59 Intake Total 5550 4440 Output Total 1250 850 Balance 4300 3590 Weight 88.9 kg 89.6 kg General appearance: PRESENT: no acute distress, well-developed Head exam: PRESENT: atraumatic Eye exam: PRESENT: PERRLA Mouth exam: PRESENT: moist, tongue midline Teeth exam: PRESENT: poor dentation Neck exam: ABSENT: carotid bruit, JVD, lymphadenopathy, thyromegaly Respiratory exam: PRESENT: clear to auscultation navarro. ABSENT: rales, rhonchi, wheezes Cardiovascular exam: PRESENT: RRR. ABSENT: diastolic murmur, rubs, systolic murmur GI/Abdominal exam: PRESENT: normal bowel sounds, soft. ABSENT: distended, guarding, mass, organolmegaly, rebound, tenderness Rectal exam: PRESENT: deferred Extremities exam: PRESENT: full ROM. ABSENT: calf tenderness, clubbing, pedal edema Neurological exam: PRESENT: alert, awake, oriented to person, oriented to place, oriented to time, oriented to situation, CN II-XII grossly intact. ABSENT: motor sensory deficit Psychiatric exam: PRESENT: appropriate affect, normal mood. ABSENT: homicidal ideation, suicidal ideation Skin exam: PRESENT: dry, intact, warm. ABSENT: cyanosis, rash Results Laboratory Results: WBC 9.4 10^3/uL (4.0-10.5) 03/10/20 07:03 RBC 4.38 10^6/uL (3.72-5.28) 03/10/20 07:03 Hgb 12.5 g/dL (12.0-15.5) 03/10/20 07:03 Hct 36.3 % (36.0-47.0) 03/10/20 07:03 MCV 83 fl (80-97) 03/10/20 07:03 MCH 28.4 pg (27.0-33.4) 03/10/20 07:03 MCHC 34.3 g/dL (32.0-36.0) 03/10/20 07:03 RDW 13.6 % (11.5-14.0) 03/10/20 07:03 Plt Count 275 10^3/uL (150-450) 03/10/20 07:03 Lymph % (Auto) 29.0 % (13-45) 03/10/20 07:03 [place] % (Auto) 12.4 % (3-13) 03/10/20 07:03 Eos % (Auto) 2.1 % (0-6) 03/10/20 07:03 Baso % (Auto) 0.5 % (0-2) 03/10/20 07:03 Absolute Neuts (auto) 5.3 10^3/uL (1.7-8.2) 03/10/20 07:03 Absolute Lymphs (auto) 2.7 10^3/uL (0.5-4.7) 03/10/20 07:03 Absolute Monos (auto) 1.2 10^3/uL (0.1-1.4) 03/10/20 07:03 Absolute Eos (auto) 0.2 10^3/uL (0.0-0.6) 03/10/20 07:03 Absolute Basos (auto) 0.0 10^3/uL (0.0-0.2) 03/10/20 07:03 Seg Neutrophils % 56.0 % (42-78) 03/10/20 07:03 Sodium 137.4 mmol/L (137-145) 03/10/20 07:03 Potassium 3.9 mmol/L (3.6-5.0) 03/10/20 07:03 Chloride 104 mmol/L (98-107) 03/10/20 07:03 Carbon Dioxide 27 mmol/L (22-30) 03/10/20 07:03 Anion Gap 6 (5-19) 03/10/20 07:03 BUN 4 mg/dL (7-20) L 03/10/20 07:03 Creatinine 0.59 mg/dL (0.52-1.25) 03/10/20 07:03 Est GFR ( Amer) > 60 (>60) 03/10/20 07:03 Est GFR (Non-Af Amer) Cancelled 03/08/20 07:15 Est GFR (MDRD) Non-Af > 60 (>60) 03/10/20 07:03 Glucose 98 mg/dL (75-110) 03/10/20 07:03 Calcium 8.7 mg/dL (8.4-10.2) 03/10/20 07:03 Magnesium 1.9 mg/dL (1.6-2.3) 03/10/20 07:03 Total Bilirubin 0.4 mg/dL (0.2-1.3) 03/10/20 07:03 Direct Bilirubin 0.0 mg/dL (0.0-0.4) 03/10/20 07:03 Neonat Total Bilirubin Not Reportable 03/10/20 07:03 Neonat Direct Bilirubin Not Reportable 03/10/20 07:03 Neonat Indirect Bili Not Reportable 03/10/20 07:03 AST 19 U/L (14-36) 03/10/20 07:03 ALT 15 U/L (<35) 03/10/20 07:03 Alkaline Phosphatase 70 U/L (38-126) 03/10/20 07:03 Total Protein 6.4 g/dL (6.3-8.2) 03/10/20 07:03 Albumin 3.5 g/dL (3.5-5.0) 03/10/20 07:03 EGFR Cancelled 03/08/20 07:15 Urine Color SAM 03/07/20 15:38 Urine Appearance CLOUDY 03/07/20 15:38 Urine pH 5.0 (5.0-9.0) 03/07/20 15:38 Ur Specific [place] 1.013 03/07/20 15:38 Urine Protein 100 mg/dL (NEGATIVE) H 03/07/20 15:38 Urine Glucose (UA) NEGATIVE mg/dL (NEGATIVE) 03/07/20 15:38 Urine Ketones NEGATIVE mg/dL (NEGATIVE) 03/07/20 15:38 Urine Blood LARGE (NEGATIVE) H 03/07/20 15:38 Urine Nitrite POSITIVE (NEGATIVE) H 03/07/20 15:38 Urine Bilirubin NEGATIVE (NEGATIVE) 03/07/20 15:38 Urine Urobilinogen NEGATIVE mg/dL (<2.0) 03/07/20 15:38 Ur Leukocyte Esterase LARGE (NEGATIVE) H 03/07/20 15:38 Urine WBC (Auto) >182 /HPF 03/07/20 15:38 Urine RBC (Auto) 19 /HPF 03/07/20 15:38 Urine WBC Clumps MANY /HPF 03/07/20 15:38 Squamous Epi Cells Auto 1 /HPF 03/07/20 15:38 U Non-Squamous Epis Auto 1 /HPF 03/07/20 15:38 Urine Mucus (Auto) OCC /LPF 03/07/20 15:38 Urine Ascorbic Acid NEGATIVE (NEGATIVE) 03/07/20 15:38 Urine HCG, Qual NEGATIVE (NEGATIVE) 03/07/20 15:38 Epi Cells (Wet Prep) 3+ EPITHELIALS SEEN 03/07/20 18:07 Bacteria (Wet Prep) 4+ BACTERIA SEEN 03/07/20 18:07 Trichomonas (Wet Prep) NO TRICHOMONAS SEEN 03/07/20 18:07 Vaginal WBC 2+ WBCS SEEN 03/07/20 18:07 Vaginal RBC Cancelled 03/07/20 16:12 Vaginal Yeast NO YEAST SEEN 03/07/20 18:07 Impressions: Abdomen/Pelvis CT 03/07/20 14:13 IMPRESSION: 1. No nephrolithiasis. Mild fullness of the right ureter with questionable ureteral wall thickening may be related to recently passed stone or possibly urinary tract infection. Recommend correlation with urinalysis. 2. Cholelithiasis. Plan Time Spent: Greater than 30 Minutes Stroke Is this a Stroke Patient?: No Acute Heart Failure - Is this a Heart Failure Patient?: No
== END 2020-03-10 10:31 | disposition home or self-care (01) | DRG 872 ==
LOC: ER 10:33 → EH 20:19 → 2N 23:35
PROVIDERS: ADMIT Emergency Medicine; ATTEND Internal Medicine
DX: A41.9 Sepsis, unspecified organism (principal); N10 Acute pyelonephritis; E03.9 Hypothyroidism, unspecified; B96.20 Unspecified Escherichia coli [E. coli] as the cause of diseases classified elsewhere
CPT/HCPCS: 36415; 74176; 80053; 81001; 81025; 83735; 85025; 87040; 87070; 87077; 87086; 87088; 87150; 87186; 87210; 96365; 96375; 99285; J0696; J1170; J1644; J1885; J1956; J2185; J2405; J2550; J3490; J7030; J7121; S0028; S0119